=== PATIENT | female | born 1940 | race Caucasian/White ===

== ENCOUNTER 2024-03-23 14:03 | Outpatient (CLI) | payer MEDICARE ==
--- NOTE | 2024-03-28 09:46 | DEXA Report ---
PROCEDURE: Dexa Spine and/or Hip INDICATIONS: POST MENOPAUSAL TECHNIQUE: Dual energy x-ray absorptiometry (DEXA) was performed in the regions detailed below. COMPARISON: None. FINDINGS: Lumbar Spine: Bone Mineral Density 0.937 g/cm/cm,T score -2.0. Osteopenia Left Femoral Neck: Bone Mineral Density 0.598 g/cm/cm, T score -3.2. Osteoporosis Left Total Hip: Bone Mineral Density 0.611 g/cm/cm,T score -3.2. Osteoporosis (T score greater or equal to -1.0: NORMAL) (T score from -1.1 to -2.4: OSTEOPENIA) (T score less than or equal to -2.5 to: OSTEOPOROSIS) IMPRESSION: Osteoporosis Patients with diagnosis of osteoporosis or osteopenia should have regular bone mineral density assess ment. For those eligible for Medicare, routine testing is allowed once every 2 years. Testing frequ ency can be increased for patients who have rapidly progressing disease or for those who are receivin g medical therapy to restore bone mass. Reviewed by: Shadi Bailey MD on 03/28/2024 8:45 AM [facility] Approved by: Shadi Bailey MD on 03/28/2024 8:45 AM [facility]ROSE Station ID: [id number]
== END 2024-03-23 14:04 | disposition home or self-care (01) ==
LOC: DI 14:03
PROVIDERS: ATTEND Internal Medicine
DX: N95.8 Other specified menopausal and perimenopausal disorders (principal); M81.0 Age-related osteoporosis without current pathological fracture